=== PATIENT | male | born 1980 | race Caucasian/White ===

== ENCOUNTER 2019-09-07 14:54 | Emergency (ER) | payer OTHER, SELFPAY ==
--- NOTE | 2019-09-07 16:58 | RAD REPORT ---
EXAM DESCRIPTION: [place] Single View09/07/2019 4:16 pm CLINICAL HISTORY: cough COMPARISON: none FINDINGS: The lungs appear clear of acute infiltrate. The heart is normal size IMPRESSION: No acute abnormalities displayed
[2019-09-07 17:04] LABS: Absolute Lymphocytes (CBC) 1.7 K/uL (0.7-4.9); Basophils % 0.5 % (0-1.3); Hematocrit 47.2 % (39.6-49.0); Lymphocytes % 12.4 % (15.3-44.8); MPV 9.2 fL (7.6-11.3); RBC Red Blood Cell Count 5.42 M/uL (4.33-5.43)
[2019-09-07 17:15] LABS: ALT/SGPT 92 U/L (12-78); AST/SGOT 34 U/L (15-37); Albumin 4.1 g/dL (3.4-5.0); Alkaline Phosphatase 80 U/L (45-117); BUN Blood Urea Nitrogen 6 mg/dL (7-18); Bicarbonate 22 mmol/L (21-32); Bilirubin Direct 0.1 mg/dL (0-0.2); Bilirubin Total 0.7 mg/dL (0.2-1.0); Glucose Level 102 mg/dL (74-106); Magnesium 2.3 mg/dL (1.8-2.4); NT PRO-BNP 91 pg/mL (<125); Potassium 3.5 mmol/L (3.5-5.1); Protein, Total 7.9 g/dL (6.4-8.2); Sodium Level 135 mmol/L (136-145); Troponin (Emerg Dept Use Only) < 0.02 ng/mL (0.0-0.045)
[2019-09-07] MEDS ORDERED: NA CHLORIDE 0.9% 1,000 ML ONE (17:27)
[2019-09-07] MEDS ORDERED: ONDANSETRON 4 MG/2 ML VIAL ONE (17:34)
[2019-09-07 17:53] LABS: Protime INR 1.04
--- NOTE | 2019-09-07 18:14 | RAD REPORT ---
EXAM DESCRIPTION: CT - Abdomen Pelvis W Contrast - 09/07/2019 6:02 pm CLINICAL HISTORY: Abdominal pain COMPARISON: none. TECHNIQUE: Computed axial tomography of the abdomen pelvis was obtained. 100 cc Isovue-300 was admin istered intravenously. Oral contrast was not requested which limits evaluation of bowel. All CT scans are performed using dose optimization technique as appropriate and may include automated exposure control or mA/KV adjustment according to patient size. FINDINGS: Mild fatty liver Spleen, pancreas, adrenal and kidneys appear unremarkable. There is no evidence of diverticulitis. Normal appendix IMPRESSION: No acute abnormality is displayed.
--- NOTE | 2019-09-07 18:48 | ER ---
Nurse's Notes [facility] Name: Richard Reed Age: 39 yrs Sex: Male : 1980 Arrival Date: 09/07/2019 Time: 14:56 Bed 23 Private MD: Diagnosis: Diarrhea, unspecified;Nausea and vomiting;Abdominal tenderness Presentation: 09/06 15:19 Chief complaint: Patient states: has been dry heaving in the morning for sometime but dm5 didn't think it was a big deal, since Thursday fatigue, light fever, chills, sweating palms and feet. Lower back pain started today. dry mouth stomach feels constantly empty. Coronavirus screen: The patient has NOT traveled to a country currently being monitored by the [facility] within the last 14 days. The patient has NOT had contact with any known and/or suspected case of coronavirus. Proceed with normal triage procedures. Ebola Screen: Patient negative for fever greater than or equal to 101.5 degrees Fahrenheit, and additional compatible Ebola Virus Disease symptoms Patient denies exposure to infectious person. Patient denies travel to an Ebola-affected area in the 21 days before illness onset. No symptoms or risks identified at this time. Initial Sepsis Screen: Does the patient meet any 2 criteria? No. Patient's initial sepsis screen is negative. Does the patient have a suspected source of infection? No. Patient's initial sepsis screen is negative. Risk Assessment: Do you want to hurt yourself or someone else? Patient reports no desire to harm self or others. 15:19 Method Of Arrival: Ambulatory 5 15:19 Acuity: RINA 3 dm5 Triage Assessment: 15:44 General: Behavior is calm, cooperative. Neuro: No deficits noted. Cardiovascular: No ls4 deficits noted. Respiratory: No deficits noted. 15:59 General: Appears in no apparent distress. Pain: Denies pain. GI: Abdomen is round ls4 non-distended, Bowel sounds hyperactive in right upper quadrant, left upper quadrant, right lower quadrant and left lower quadrant Abdomen is tender to palpation in right lower quadrant and left lower quadrant Reports diarrhea, tolerance of fluids, tolerance of food. Historical: - Allergies: 15:59 No Known Allergies; ls4 - Home Meds: 15:59 None [Active]; ls4 - PMHx: 15:59 None; ls4 - PSHx: 15:59 ORAL SURGERY; ls4 - Immunization history:: Adult Immunizations up to date, Flu vaccine is not up to date. - Social history:: Smoking status: Patient denies any tobacco usage or history of. Screenin:02 Abuse screen: Denies threats or abuse. Denies injuries from another. Nutritional ls4 screening: No deficits noted. Tuberculosis screening: No symptoms or risk factors identified. Fall Risk None identified. Assessment: 16:30 Reassessment: Patient appears in no apparent distress at this time. Patient and/or ls4 family updated on plan of care and expected duration. Pain level reassessed. Patient is alert, oriented x 3, equal unlabored respirations, skin warm/dry/pink. 17:30 Reassessment: Patient appears in no apparent distress at this time. Patient and/or ls4 family updated on plan of care and expected duration. Pain level reassessed. Patient is alert, oriented x 3, equal unlabored respirations, skin warm/dry/pink. 18:30 Reassessment: Patient appears in no apparent distress at this time. Patient and/or ls4 family updated on plan of care and expected duration. Pain level reassessed. Patient is alert, oriented x 3, equal unlabored respirations, skin warm/dry/pink. 19:24 Reassessment: Patient appears in no apparent distress at this time. Patient and/or ls4 family updated on plan of care and expected duration. Pain level reassessed. Patient is alert, oriented x 3, equal unlabored respirations, skin warm/dry/pink. Vital Signs: 15:19 BP 145 / 102; Pulse 83; Resp 20; Temp 98.5(O); Pulse Ox 98% on R/A; Weight 104.33 kg; dm5 Height 5 ft. 11 in. (180.34 cm); Pain 2/10; 16:44 BP 165 / 88; Pulse 61; Resp 14; Temp 98.4(O); Pulse Ox 99% on R/A; Pain 1/10; ls4 19:23 BP 148 / 97; Pulse 75; Resp 14; Temp 98.3(O); Pulse Ox 99% on R/A; Pain 0/10; ls4 15:19 Body Mass Index 32.08 (104.33 kg, 180.34 cm) dm5 ED Course: 14:56 Patient arrived in ED. ag5 15:24 Triage completed. dm5 15:40 [facility] la1 15:40 Stefano Fontaine MD is Attending Physician. la1 15:56 Mariia Suarez, RN is Primary Nurse. ls4 16:02 Patient has correct armband on for positive identification. Bed in low position. Call ls4 light in reach. Side rails up X 1. 16:02 No provider procedures requiring assistance completed. ls4 16:16 XRAY Chest (1 view) In Process Unspecified. EDMS 16:20 First set of blood cultures drawn by me. jb1 16:35 Initial lab(s) drawn, by me, sent to lab. jb1 16:35 Second set of blood cultures drawn by me. jb1 16:47 EKG done, by ED staff, reviewed by Kike BRADSHAW. jb1 16:47 Inserted saline lock: 22 gauge in left antecubital area, using aseptic technique. Blood jb1 collected. 17:53 IV discontinued, intact, bleeding controlled, IV infiltrated. jb1 17:54 Inserted saline lock: 22 gauge in right antecubital area, using aseptic technique. jb1 18:04 CT Abd/Pelvis - IV Contrast Only In Process Unspecified. EDMS 19:27 IV discontinued, intact, bleeding controlled, No redness/swelling at site. ls4 Administered Medications: 17:15 Drug: NS 0.9% 1000 ml Route: IV; Rate: 1000 ml; Site: left antecubital; ls4 17:28 Drug: Zofran (Ondansetron) 4 mg Route: IVP; Site: left antecubital; ls4 Outcome: 18:48 Discharge ordered by . la1 19:26 Discharged to home ambulatory. ls4 19:26 Condition: stable 19:26 Discharge instructions given to patient, family, Instructed on discharge instructions, follow up and referral plans. medication usage, Demonstrated understanding of instructions, follow-up care, medications, Prescriptions given X 2. 19:27 Patient left the ED. ls4 Signatures: Dispatcher [employer] EDMS Darshan Rivera jb1 Yulia Lr RN RN dm5 Kike Elam FNP-C MECHANIC FOREMAN-Cla1 Mariia Suarez, RN RN ls4 Gustabo De Oliveira ag5
--- NOTE | 2019-09-07 18:48 | EDPHYS ---
Physician Documentation [facility] Name: Richard Reed Age: 39 yrs Sex: Male : 1980 Arrival Date: 09/07/2019 Time: 14:56 Bed 23 Private MD: ED Physician Stefano Fontaine HPI: 09/06 16:47 This 39 yrs old Male presents to ER via Ambulatory with complaints of la1 Abdominal Pain, Vomiting, Blood Pressure Problem. 16:47 The patient presents with abdominal pain in the lower abdomen. Onset: The la1 symptoms/episode began/occurred 2 day(s) ago. The symptoms do not radiate. Associated signs and symptoms: Pertinent positives: anorexia, nausea, clammy, malaise. The symptoms are described as vague. Modifying factors: The symptoms are alleviated by nothing, the symptoms are aggravated by nothing. Severity of pain: At its worst the pain was moderate. The patient has not experienced similar symptoms in the past. Historical: - Allergies: 15:59 No Known Allergies; ls4 - Home Meds: 15:59 None [Active]; ls4 - PMHx: 15:59 None; ls4 - PSHx: 15:59 ORAL SURGERY; ls4 - Immunization history:: Adult Immunizations up to date, Flu vaccine is not up to date. - Social history:: Smoking status: Patient denies any tobacco usage or history of. ROS: 16:48 Constitutional: + chills, malaise Eyes: Negative for injury, pain, redness, and la1 discharge, ENT: Negative for injury, pain, and discharge, Neck: Negative for injury, pain, and swelling, Cardiovascular: Negative for chest pain, palpitations, and edema, Respiratory: Negative for shortness of breath, cough, wheezing, and pleuritic chest pain. 16:48 : Negative for injury, bleeding, discharge, and swelling, MS/Extremity: Negative for injury and deformity, Skin: Negative for injury, rash, and discoloration, Neuro: Negative for headache, weakness, numbness, tingling, and seizure. 16:48 Abdomen/GI: Positive for abdominal pain, nausea, diarrhea, Negative for dysphagia, hematemesis, black/tarry stool, rectal pain, rectal bleeding, bowel incontinence. Exam: 16:49 Constitutional: This is a well developed, well nourished patient who is awake, alert, la1 and in no acute distress. Head/Face: Normocephalic, atraumatic. Chest/axilla: Normal chest wall appearance and motion. Nontender with no deformity. No lesions are appreciated. Cardiovascular: Regular rate and rhythm with a normal S1 and S2. No gallops, murmurs, or rubs. Normal PMI, no JVD. No pulse deficits. Respiratory: Lungs have equal breath sounds bilaterally, clear to auscultation 16:49 Back: No spinal tenderness. No costovertebral tenderness. Full range of motion. Skin: Warm, dry with normal turgor. Normal color with no rashes, no lesions, and no evidence of cellulitis. Neuro: Awake and alert, GCS 15, oriented to person, place, time, and situation. 16:49 Abdomen/GI: Inspection: abdomen appears normal, Bowel sounds: normal, in all quadrants, Palpation: mild abdominal tenderness, in the right lower quadrant and left lower quadrant, Indicators: McBurney's point is not tender, Allison's sign is negative, Rovsing's sign is negative, Obturator sign is negative, Psoas sign is negative. Vital Signs: 15:19 BP 145 / 102; Pulse 83; Resp 20; Temp 98.5(O); Pulse Ox 98% on R/A; Weight 104.33 kg; dm5 Height 5 ft. 11 in. (180.34 cm); Pain 2/10; 16:44 BP 165 / 88; Pulse 61; Resp 14; Temp 98.4(O); Pulse Ox 99% on R/A; Pain 1/10; ls4 19:23 BP 148 / 97; Pulse 75; Resp 14; Temp 98.3(O); Pulse Ox 99% on R/A; Pain 0/10; ls4 15:19 Body Mass Index 32.08 (104.33 kg, 180.34 cm) dm5 MDM: 15:45 Patient medically screened. la1 18:47 Data reviewed: vital signs, nurses notes, lab test result(s), radiologic studies, I la1 have discussed the patient's presentation/case with the attending Emergency Department Physician; and as a result, I will discharge patient. Data interpreted: Pulse oximetry: on room air is 99 %. Interpretation: normal. Counseling: I had a detailed discussion with the patient and/or guardian regarding: the historical points, exam findings, and any diagnostic results supporting the discharge/admit diagnosis, lab results, radiology results, the need for outpatient follow up, a family practitioner, to return to the emergency department if symptoms worsen or persist or if there are any questions or concerns that arise at home. Special discussion: Based on the patient's Hx, exam, and Dx evaluation, there is no indication for emergent surgery or inpatient Tx. It is understood by the patient/guardian that if the Sx's persist or worsen they need to return immediately for re-evaluation. 09/06 15:56 Order name: Basic Metabolic Panel; Complete Time: 18:23 09/06 15:56 Order name: CBC with Diff; Complete Time: 17:26 09/06 15:56 Order name: LFT's; Complete Time: 18:23 09/06 15:56 Order name: Magnesium; Complete Time: 18:23 09/06 15:56 Order name: NT PRO-BNP; Complete Time: 18:23 09/06 15:56 Order name: PT-INR; Complete Time: 18:23 09/06 15:56 Order name: Troponin (emerg Dept Use Only); Complete Time: 18:23 09/06 15:56 Order name: XRAY Chest (1 view); Complete Time: 17:15 09/06 15:56 Order name: Blood Culture Adult (2) 09/06 15:56 Order name: Lactate; Complete Time: 17:22 09/06 15:56 Order name: Ketone, Serum; Complete Time: 18:23 09/06 16:17 Order name: CT Abd/Pelvis - IV Contrast Only; Complete Time: 18:23 09/06 15:56 Order name: EKG; Complete Time: 16:00 09/06 15:56 Order name: Cardiac monitoring; Complete Time: 16:48 09/06 15:56 Order name: EKG - Nurse/Tech; Complete Time: 16:48 09/06 15:56 Order name: IV Saline Lock; Complete Time: 16:48 09/06 15:56 Order name: Labs collected and sent; Complete Time: 16:48 09/06 15:56 Order name: O2 Per Protocol; Complete Time: 16:48 la1 09/06 15:56 Order name: O2 Sat Monitoring; Complete Time: 16:48 la1 Administered Medications: 17:15 Drug: NS 0.9% 1000 ml Route: IV; Rate: 1000 ml; Site: left antecubital; ls4 17:28 Drug: Zofran (Ondansetron) 4 mg Route: IVP; Site: left antecubital; ls4 Disposition: 09/07 07:05 Co-signature as Attending Physician, Stefano Fontaine MD I agree with the assessment and kdr plan of care. Disposition: 09/07/19 18:48 Discharged to Home. Impression: Diarrhea, unspecified, Nausea and vomiting, Abdominal tenderness. - Condition is Stable. - Discharge Instructions: Abdominal Pain, Adult, Diarrhea, Adult, Nausea and Vomiting, Adult. - Prescriptions for Bentyl 20 mg Oral Tablet - take 1 tablet by ORAL route every 6 hours As needed; 20 tablet. Zofran 4 mg Oral Tablet - take 1 tablet by ORAL route every 12 hours As needed; 6 tablet. - Medication Reconciliation Form, Thank You Letter form. - Follow up: Private Physician; When: 2 - 3 days; Reason: Recheck today's complaints, Re-evaluation by your physician. - Problem is new. - Symptoms have improved. Signatures: Dispatcher [employer] EDMS Stefano Fontaine MD MD [facility] Kike Elam, ITALIAN TEACHER-C ITALIAN TEACHER-Cla1 Mariia Suarez, RN RN ls4 Corrections: (The following items were deleted from the chart) 09/06 19:27 18:48 09/07/2019 18:48 Discharged to Home. Impression: Diarrhea, unspecified; Nausea ls4 and vomiting; Abdominal tenderness. Condition is Stable. Forms are Medication Reconciliation Form, Thank You Letter, Antibiotic Education, Prescription Opioid Use. Follow up: Private Physician; When: 2 - 3 days; Reason: Recheck today's complaints, Re-evaluation by your physician. Problem is new. Symptoms have improved. la1
[2019-09-07 19:43] VITALS: O2SAT 99
[2019-09-07 19:44] VITALS: BP 148/97; TEMP 98.3
--- NOTE | 2019-09-08 08:52 | EKG ---
Test Date: 2019-09-07 Test Time: 16:15:45 Um Specialist: Anamaria MEASUREMENT RESULTS: Intervals: Rate: 72 ME: 148 QRSD: 82 QT: 384 QTc: 420 [place]: P: 34 ME: 148 QRS: 27 T: 24 INTERPRETIVE STATEMENTS: Normal sinus rhythm Normal ECG Compared to ECG 09/11/1995 09:00:00 Sinus bradycardia no longer present Electronically Signed On 09-08-19 08:50:39 CDT by Rolando Daigle
== END 2019-09-07 19:27 | disposition home or self-care (01) ==
LOC: ER 14:54
DX: R19.7 Diarrhea, unspecified (principal); R11.2 Nausea with vomiting, unspecified
CPT/HCPCS: 36415; 71045; 74177; 80048; 80076; 82010; 83605; 83735; 83880; 84484; 85025; 85610; 87040; 93005; 96374; 99284; J2405; J7030; Q9967

== ENCOUNTER 2019-09-11 05:05 | Emergency (ER) | payer SELFPAY ==
[2019-09-11] MEDS ORDERED: ALBUTEROL 2.5 MG/3 ML NEB SOL ONE (05:59)
--- NOTE | 2019-09-11 06:12 | EDPHYS ---
Physician Documentation [facility] Name: Richard Reed Age: 39 yrs Sex: Male : 1980 Arrival Date: 09/11/2019 Time: 05:12 Bed 6 Private MD: ED Physician Pascual Neville HPI: 09/10 05:24 This 39 yrs old Male presents to ER via Unassigned with complaints of SOB. tw4 05:24 The patient has shortness of breath at rest. Onset: The symptoms/episode began/occurred tw4 today. Duration: The symptoms are continuous, and are unchanged since they started. The patient's shortness of breath has no apparent modifying factors. Associated signs and symptoms: The patient has no apparent associated signs or symptoms. Severity of symptoms: At their worst the symptoms were moderate in the emergency department the symptoms are unchanged. The patient has not experienced similar symptoms in the past. Historical: - Allergies: 05:29 PENICILLINS; lw1 - Home Meds: 05:29 None [Active]; lw1 - PMHx: 05:29 None; lw1 - PSHx: 05:29 ORAL SURGERY; lw1 - Immunization history:: Adult Immunizations not up to date. - Social history:: Smoking status: Patient uses [employer]. - Family history:: not pertinent. - Code Status:: Full code. - Coronavirus screen:: The patient has NOT traveled to [place] in the past 14 days. The patient has NOT had contact with known/suspected case of Coronavirus?. - Ebola Screening: : Patient negative for fever greater than or equal to 101.5 degrees Fahrenheit, and additional compatible Ebola Virus Disease symptoms Patient denies exposure to infectious person Patient denies travel to an Ebola-affected area in the 21 days before illness onset No symptoms or risks identified at this time. ROS: 05:24 Constitutional: Negative for fever, chills, and weight loss. tw4 05:24 Eyes: Negative for injury, pain, redness, and discharge, Cardiovascular: Negative for chest pain, palpitations, and edema, Abdomen/GI: Negative for abdominal pain, nausea, vomiting, diarrhea, and constipation, Back: Negative for injury and pain, MS/Extremity: Negative for injury and deformity, Skin: Negative for injury, rash, and discoloration, Neuro: Negative for headache, weakness, numbness, tingling, and seizure. 05:24 Respiratory: Positive for cough, shortness of breath, Negative for dyspnea on exertion, hemoptysis, orthopnea, pleurisy, shortness of breath. Exam: 05:24 Constitutional: This is a well developed, well nourished patient who is awake, alert, tw4 and in no acute distress. Head/Face: Normocephalic, atraumatic. Chest/axilla: Normal chest wall appearance and motion. Nontender with no deformity. No lesions are appreciated. Cardiovascular: Regular rate and rhythm with a normal S1 and S2. No gallops, murmurs, or rubs. Normal PMI, no JVD. No pulse deficits. Respiratory: Lungs have equal breath sounds bilaterally, clear to auscultation and percussion. No rales, rhonchi or wheezes noted. No increased work of breathing, no retractions or nasal flaring. Abdomen/GI: Soft, non-tender, with normal bowel sounds. No distension or tympany. No guarding or rebound. No evidence of tenderness throughout. Back: No spinal tenderness. No costovertebral tenderness. Full range of motion. Skin: Warm, dry with normal turgor. Normal color with no rashes, no lesions, and no evidence of cellulitis. MS/ Extremity: Pulses equal, no cyanosis. Neurovascular intact. Full, normal range of motion. Neuro: Awake and alert, GCS 15, oriented to person, place, time, and situation. Cranial nerves II-XII grossly intact. Motor strength 5/5 in all extremities. Sensory grossly intact. Cerebellar exam normal. Normal gait. Vital Signs: 05:21 BP 184 / 95; Pulse 60; Resp 22; Temp 98.1(TE); Pulse Ox 99% on R/A; Weight 104.33 kg; lw1 Height 5 ft. 10 in. (177.80 cm); Pain 0/10; 05:21 Body Mass Index 33.00 (104.33 kg, 177.80 cm) lw1 MDM: 05:14 Patient medically screened. tw4 06:11 Differential diagnosis: pneumonia, Pneumothorax Psychogenic pulmonary edema. Antibiotic tw4 administration: Not indicated. Data reviewed: vital signs, nurses notes. Data interpreted: Pulse oximetry: Interpretation: normal. Counseling: I had a detailed discussion with the patient and/or guardian regarding: the historical points, exam findings, and any diagnostic results supporting the discharge/admit diagnosis. Special discussion: I discussed with the patient/guardian in detail that at this point there is no indication for admission to the hospital. It is understood, however, that if the symptoms persist or worsen the patient needs to return immediately for re-evaluation. 06:11 Data reviewed: lab test result(s), Flu: positive. tw4 09/10 05:13 Order name: Flu; Complete Time: 05:48 09/10 05:48 Interpretation: Abnormal: FLUB FLU B ----- \T\nbsp; \T\nbsp; \T\nbsp; \T\nbsp; \T\nbsp; \T\nbs p; tw4 \T\nbsp; \T\nbsp; \T\nbsp; POSITIVE for FLU B protein antigen; FLUA FLU A ----- \T\nbsp; \T\nb sp; \T\nbsp; \T\nbsp; \T\nbsp; \T\nbsp; \T\nbsp; \T\nbsp; \T\nbsp; POSITIVE for FLU A protein anti gen. 09/10 05:13 Order name: XRAY Chest (1 view) 09/10 05:24 Order name: EKG; Complete Time: 05:24 09/10 05:24 Order name: EKG - Nurse/Tech; Complete Time: 05:46 4 EC:42 Rate is 77 beats/min. Rhythm is regular. QRS [place] is Normal. LA interval is normal. QRS tw4 interval is normal. QT interval is normal. No Q waves. T waves are Normal. T waves are Inverted in lead III. No ST changes noted. Clinical impression: NSR w/ Non-specific ST/T Changes. Interpreted by me. Reviewed by me. Administered Medications: 05:59 Drug: Albuterol 1.25 mg Route: Inhalation; lw1 06:12 Follow up: Response: Anxiety decreased; Other lw1 Disposition: 09/11/19 06:12 Discharged to Home. Impression: Influenza due to other identified influenza virus, Influenza due to identified novel influenza A virus. - Condition is Stable. - Discharge Instructions: Influenza, Adult. - Prescriptions for Ibuprofen 800 mg Oral Tablet - take 1 tablet by ORAL route every 8 hours As needed take with food; 30 tablet. Tamiflu 75 mg Oral Capsule - take 1 tablet by ORAL route every 12 hours for 5 days; 10 tablet. - Medication Reconciliation Form, Thank You Letter, Antibiotic Education, Prescription Opioid Use form. - Follow up: Private Physician; When: Upon discharge from the Emergency Department; Reason: Recheck today's complaints, Continuance of care, Re-evaluation by your physician. - Problem is new. - Symptoms have improved. Signatures: Dispatcher [employer] EDAK Pascual Neville MD MD tw4 Tressa Lowe RN RN lw1 Corrections: (The following items were deleted from the chart) 06:22 06:12 09/11/2019 06:12 Discharged to Home. Impression: Influenza due to other lw1 identified influenza virus; Influenza due to identified novel influenza A virus. Condition is Stable. Forms are Medication Reconciliation Form, Thank You Letter, Antibiotic Education, Prescription Opioid Use. Follow up: Private Physician; When: Upon discharge from the Emergency Department; Reason: Recheck today's complaints, Continuance of care, Re-evaluation by your physician. Problem is new. Symptoms have improved. tw4
--- NOTE | 2019-09-11 06:12 | ER ---
Nurse's Notes [facility] Name: Richard Reed Age: 39 yrs Sex: Male : 1980 Arrival Date: 09/11/2019 Time: 05:12 Bed 6 Private MD: Diagnosis: Influenza due to other identified influenza virus;Influenza due to identified novel influenza A virus Presentation: 09/10 05:21 Chief complaint: Patient states: HE HAS BEEN FEELING SOB OF BREATH FOR A FEW WEEKS AND lw1 HAS ANXIETY WELL. EMS states: SOB FOR COUPLE OF WEAKS. Coronavirus screen: The patient has NOT traveled to a country currently being monitored by the [facility] within the last 14 days. The patient has NOT had contact with any known and/or suspected case of coronavirus. Proceed with normal triage procedures. Ebola Screen: Patient negative for fever greater than or equal to 101.5 degrees Fahrenheit, and additional compatible Ebola Virus Disease symptoms Patient denies exposure to infectious person. Patient denies travel to an Ebola-affected area in the 21 days before illness onset. No symptoms or risks identified at this time. Initial Sepsis Screen: Does the patient meet any 2 criteria? No. Patient's initial sepsis screen is negative. Does the patient have a suspected source of infection? No. Patient's initial sepsis screen is negative. Risk Assessment: Do you want to hurt yourself or someone else? Patient reports no desire to harm self or others. 05:21 Method Of Arrival: EMS: [facility] lw1 05:21 Acuity: RINA 3 lw1 Triage Assessment: 05:20 General: Appears in no apparent distress. Behavior is anxious. Pain: Denies pain. lw1 Historical: - Allergies: 05:29 PENICILLINS; lw1 - Home Meds: 05:29 None [Active]; lw1 - PMHx: 05:29 None; lw1 - PSHx: 05:29 ORAL SURGERY; lw1 - Immunization history:: Adult Immunizations not up to date. - Social history:: Smoking status: Patient uses [employer]. - Family history:: not pertinent. - Code Status:: Full code. - Coronavirus screen:: The patient has NOT traveled to [place] in the past 14 days. The patient has NOT had contact with known/suspected case of Coronavirus?. - Ebola Screening: : Patient negative for fever greater than or equal to 101.5 degrees Fahrenheit, and additional compatible Ebola Virus Disease symptoms Patient denies exposure to infectious person Patient denies travel to an Ebola-affected area in the 21 days before illness onset No symptoms or risks identified at this time. Assessment: 05:32 Reassessment:. lw1 05:33 Reassessment: xray at bedside at this time. sg Vital Signs: 05:21 BP 184 / 95; Pulse 60; Resp 22; Temp 98.1(TE); Pulse Ox 99% on R/A; Weight 104.33 kg; lw1 Height 5 ft. 10 in. (177.80 cm); Pain 0/10; 05:21 Body Mass Index 33.00 (104.33 kg, 177.80 cm) lw1 ED Course: 05:12 Patient arrived in ED. meredith 05:14 Pascual Neville MD is Attending Physician. tw 05:14 Tressa Lowe RN is Primary Nurse. lw1 05:28 Triage completed. lw1 05:32 Arm band placed on. lw1 05:37 XRAY Chest (1 view) In Process Unspecified. EDMD 05:40 EKG done, by ED staff, reviewed by Pascual Neville MD. sg Administered Medications: 05:59 Drug: Albuterol 1.25 mg Route: Inhalation; lw1 06:12 Follow up: Response: Anxiety decreased; Other lw1 Outcome: 06:12 Discharge ordered by . tw4 06:22 Patient left the ED. lw1 Signatures: Dispatcher [employer] EDMS Fernandez Hernandez RN RN sg Antunez, Elena RN Pascual Muro ea, MD MD [facility] Tressa Lowe RN RN lw1
[2019-09-11 06:29] VITALS: BP 184/95; TEMP 98.1; O2SAT 99
--- NOTE | 2019-09-11 09:09 | RAD REPORT ---
EXAM DESCRIPTION: RAD - Chest Single View - 09/11/2019 5:38 am CLINICAL HISTORY: SOB COMPARISON: AP chest September 07, 2019 TECHNIQUE: AP portable chest image was obtained 09/11/2019 5:38 am . FINDINGS: Lungs are clear. Heart and vasculature are normal. No measurable pleural effusion and no p neumothorax. No acute bony abnormality seen. No acute aortic findings suspected. IMPRESSION: No acute cardiopulmonary process. No significant interval change.
--- NOTE | 2019-09-12 06:56 | EKG ---
Test Date: 2019-09-11 Test Time: 05:41:18 Nanofabrication Specialist: SWG MEASUREMENT RESULTS: Intervals: Rate: 77 NJ: 142 QRSD: 82 QT: 404 QTc: 457 [place]: P: 31 NJ: 142 QRS: 27 T: 31 INTERPRETIVE STATEMENTS: Normal sinus rhythm Nonspecific ST abnormality Abnormal ECG Compared to ECG 09/07/2019 16:15:45 ST (T wave) deviation now present Electronically Signed On 09-12-19 06:54:56 CDT by Rolando Dailge
== END 2019-09-11 06:22 | disposition home or self-care (01) ==
LOC: ER 05:05
DX: J10.1 Influenza due to other identified influenza virus with other respiratory manifestations (principal); Z88.0 Allergy status to penicillin
CPT/HCPCS: 71045; 87804; 93005; 99284